=== PATIENT | male | born 1950 | race Caucasian/White ===

== ENCOUNTER 2017-08-06 20:20 | Inpatient (IN) | payer OTHER ==
[~2017-08-06] VITALS: Ht 180.3 cm; Wt 168.0 kg
[~2017-08-06 20:20] MED LIST: ADVAIR 250/501 DISK IH; AMITRIPTYLINE H50 MG PO; BENICAR40 MG PO; CRESTOR10 MG PO; ECOTRIN325 MG PO; LEVOTHYROXINE200 MC1 PO; LEVOTHYROXINE25 MCG PO; PERCOCET 5/31 TABLET PO; SAVELLA50 MG PO; TAMSULOSIN HCL0.4 MG PO
[2017-08-06 22:07] LABS: APPEARANCE SL.HAZY ((CLEAR)); BILIRUBIN NEGATIVE; BLOOD LARGE; COLOR YELLOW ((YELLOW)); GLUCOSE (STRIP) NEGATIVE; KETONES NEGATIVE; LEUKOCYTES SMALL; NITRITE NEGATIVE; PROTEIN (STRIP) 30; SPECIFIC GRAVITY 1.017 (1.000-1.030)
[2017-08-06 22:37] LABS: BACTERIA 1+ /HPF; EPITHELIAL CELLS 1+ /HPF; MUCUS 3+ /LPF; RED BLOOD CELLS 40-50 /HPF (0-5); UCUL ADDED? YES
[2017-08-06 22:37] LABS: BASOPHIL (%) 0.6 % (0-1); BASOPHIL COUNT 0.1 K/uL (0-0.1); EOSINOPHIL (%) 0.1 % (0-5); HEMOGLOBIN 15.3 G/DL (12.5-16.6); IMMATURE GRANULOCYTE (%) 0.5 % (0.0-0.7); LYMPHOCYTE (%) 9.9 % (15-42); LYMPHOCYTE COUNT 1.5 K/uL (1.0-2.8); MCH 33.4 PG (29.0-34.0); MCHC 33.3 G/DL (30.0-36.0); MONOCYTE (%) 7.6 % (3-12); MONOCYTE COUNT 1.1 K/uL (0-0.8); NEUTROPHIL (%) 81.3 % (45-76); NEUTROPHIL COUNT 11.9 K/uL (1.8-6.4); PLATELET COUNT 266 K/uL (156-360); RBC DIS.WIDTH-CV 13.2 % (11.8-14.6); RBC DIS.WIDTH-SD 49.3 % (39-53); RED BLOOD COUNT 4.58 M/uL (4.00-5.50); WHITE BLOOD COUNT 14.7 K/uL (4.1-10.2)
[2017-08-06 22:42] LABS: MCV 100.4 FL (86-99)
[2017-08-06 22:47] LABS: ALBUMIN 3.9 g/dL (3.2-4.8); CHLORIDE 98 mEq/L (99-109); POTASSIUM 4.1 mEq/L (3.7-5.4); SODIUM 139 mEq/L (136-147)
[2017-08-06 22:49] LABS: GLUCOSE 154 mg/dL (70-99); TOTAL PROTEIN 7.2 g/dL (6.4-8.3)
[2017-08-06 22:53] LABS: ALKALINE PHOSPHATASE 101 IU/L (3-129); CREATININE 0.9 mg/dL (0.6-1.3); GFR ESTIMATE (CALCULATED) > 59 mL/min/ (58.99-99999)
[2017-08-06 22:54] LABS: UREA NITROGEN (BUN) 16 mg/dL (9-23)
[2017-08-06 22:55] LABS: AST (GOT) 18 IU/L (2-34)
[2017-08-06 22:56] LABS: ALT (GPT) 21 IU/L (3-49)
[2017-08-06 22:58] LABS: TROP-I INTERPRETATION NEGATIVE; TROPONIN-I < 0.01 ng/mL (0.0-0.30)
[2017-08-06 23:04] LABS: ERTH.SED.RATE 85 MM/HR (0-20)
[2017-08-07] MEDS ORDERED: ELAVIL75 MG PO (09:10)
[2017-08-07] MEDS ORDERED: AVAPRO150 MG PO (09:12)
[2017-08-07] MEDS ORDERED: ENDOCET 5-3251 EACH PO (09:13)
[2017-08-07] MEDS ORDERED: LOPRESSOR50 MG PO (09:15)
[2017-08-07] MEDS ORDERED: LASIX40 MG PO (09:15)
[2017-08-07] MEDS ORDERED: PROZAC20 MG PO (09:16)
[2017-08-07] MEDS ORDERED: VICODIN 5-3001 EACH PO (09:18)
[2017-08-07] MEDS ORDERED: PRILOSEC20 MG PO (09:19)
[2017-08-07] MEDS ORDERED: FIORICET 50-301 EAC1 PO ×2 (09:19→09:20)
[2017-08-07] MEDS ORDERED: METHOTREXATE2.5 MG PO (09:21)
[2017-08-07] MEDS ORDERED: HUMIRA40 MG/0.1 SC ×2 (09:21→09:22)
[2017-08-07] MEDS ORDERED: VITAMIN D31000 UNI2 PO (09:23)
[2017-08-07] MEDS ORDERED: DELTASONE20 M1 PO (09:23)
[2017-08-07] MEDS ORDERED: ALEVE220 MG PO (09:24)
[2017-08-07] MEDS ORDERED: TOPROL XL25 MG PO (09:37)
[2017-08-07] MEDS ORDERED: DUONEB 2.5-0.5 M3 ML AEROSOL (09:38)
[2017-08-07] MEDS ORDERED: BREO ELLIPTA I1 EACH IH (09:39)
[2017-08-07] MEDS ORDERED: ULTRAM50 MG PO (09:44)
[2017-08-07 14:36] VITALS: BP 113/58
[2017-08-07 19:02] VITALS: BP 116/58
[2017-08-07 22:43] VITALS: BP 126/56
[2017-08-08] VITALS (7 sets, daily range): BP systolic 111–136; BP diastolic 63–89
[2017-08-09 03:21] VITALS: BP 141/55
[2017-08-09 07:05] VITALS: BP 140/69
[2017-08-09 11:07] VITALS: BP 134/74
[2017-08-09 15:15] VITALS: BP 119/68
[2017-08-09 19:31] VITALS: BP 131/67
[2017-08-09 23:40] VITALS: BP 124/72
[2017-08-10 03:56] VITALS: BP 115/82
[2017-08-10 07:53] VITALS: BP 141/75
[2017-08-10 11:22] VITALS: BP 150/75
[2017-08-10 16:07] VITALS: BP 153/78
[2017-08-10 19:06] VITALS: BP 152/88
[2017-08-10] MEDS ORDERED: ALPRAZOLAM0.5 MG PO (20:55)
== END 2017-08-10 22:05 | disposition home or self-care (01) | DRG 41 ==
LOC: EME → EDBD 20:20 → 5EAST 08-07 03:17 → EDOF 08-07 03:17 → ENRESERV 08-07 03:27 → EDOF 08-07 03:28 → ENRESERV 08-07 12:05 → 5EAST 08-07 14:05
PROVIDERS: Emergency Medicine; Internal Medicine
DX: R51 Headache (principal); N13.2 Hydronephrosis with renal and ureteral calculous obstruction; N39.0 Urinary tract infection, site not specified; I11.9 Hypertensive heart disease without heart failure; E86.0 Dehydration; I87.8 Other specified disorders of veins; I89.0 Lymphedema, not elsewhere classified; J44.9 Chronic obstructive pulmonary disease, unspecified; N40.0 Benign prostatic hyperplasia without lower urinary tract symptoms; R06.02 Shortness of breath; R70.0 Elevated erythrocyte sedimentation rate; Z53.9 Procedure and treatment not carried out, unspecified reason; G89.29 Other chronic pain; M54.9 Dorsalgia, unspecified; E66.01 Morbid (severe) obesity due to excess calories; Z68.43 Body mass index [BMI] 50.0-59.9, adult; E78.00 Pure hypercholesterolemia, unspecified; H46.9 Unspecified optic neuritis; H35.62 Retinal hemorrhage, left eye; H54.62 Unqualified visual loss, left eye, normal vision right eye; F17.210 Nicotine dependence, cigarettes, uncomplicated; E03.9 Hypothyroidism, unspecified; Z79.82 Long term (current) use of aspirin; Z80.8 Family history of malignant neoplasm of other organs or systems; Z83.3 Family history of diabetes mellitus
CPT/HCPCS: 70496; 70498; 71045; 74018; 74176; 80053; 81003; 82948; 83880; 84484; 85025; 85651; 87086; 88305; 88313; 93005; 94640; 94640 76; 94660; 94799; 99202; 99281; 99285; J0696; J1644; J1815; J2250; J2765; J2930; J3010; J7512

== ENCOUNTER → 2017-08-31 | Outpatient (CLI) | payer OTHER ==
[~2017-08-31] MED LIST changes: +ALEVE220 MG PO; +ALPRAZOLAM0.5 MG PO; +AVAPRO150 MG PO; +BREO ELLIPTA I1 EACH IH; +DELTASONE20 M1 PO; +DUONEB 2.5-0.5 M3 ML AEROSOL; +ELAVIL75 MG PO; +ENDOCET 5-3251 EACH PO; +FIORICET 50-301 EAC1 PO; +HUMIRA40 MG/0.1 SC; +LASIX40 MG PO; +LOPRESSOR50 MG PO; +METHOTREXATE2.5 MG PO; +PRILOSEC20 MG PO; +PROZAC20 MG PO; +TOPROL XL25 MG PO; +ULTRAM50 MG PO; +VICODIN 5-3001 EACH PO; +VITAMIN D31000 UNI2 PO
== END | disposition home or self-care (01) ==
LOC: AMB 08:47
PROC: 0TF4XZZ Fragmentation in Left Kidney Pelvis, External Approach (ICD-10-PCS; principal; 2017-08-31)
DX: N20.0 Calculus of kidney (principal); E66.01 Morbid (severe) obesity due to excess calories; Z68.43 Body mass index [BMI] 50.0-59.9, adult; I10 Essential (primary) hypertension; E05.00 Thyrotoxicosis with diffuse goiter without thyrotoxic crisis or storm; Z87.442 Personal history of urinary calculi; I73.9 Peripheral vascular disease, unspecified; Z84.1 Family history of disorders of kidney and ureter; Z82.49 Family history of ischemic heart disease and other diseases of the circulatory system; Z83.49 Family history of other endocrine, nutritional and metabolic diseases; Z83.3 Family history of diabetes mellitus; Z80.3 Family history of malignant neoplasm of breast
CPT/HCPCS: 74021; J0330; J2250